=== PATIENT | male | born 1990 | race Two or more races ===

== ENCOUNTER 2018-07-09 15:23 | Emergency (ER) | payer MEDICAID ==
[~2018-07-09] VITALS: Ht 160 cm; Wt 54.0 kg
[2018-07-09 15:27] VITALS: BP 143/88; PULSE 90; RESP 18; Ht 160 cm; Wt 54.0 kg
[2018-07-09] MEDS ORDERED: CETI10CA PO (16:42)
[2018-07-09] MEDS ORDERED: ALBU18HF INHALATION (16:42)
[2018-07-09] MEDS ORDERED: AZIT250T PO (16:42)
[2018-07-09] MEDS ORDERED: BEN25 PO (16:44)
--- NOTE | 2018-07-19 13:17 | ERD ---
ER Documentation Chief Complaint Chief Complaint cough x 3 months , fever x 2 days HPI 27-year-old male presents with intermittent cough for last 3 months. He has no chest pain, hemoptysis, vomiting, abdominal pain, diarrhea. ROS All systems reviewed and are negative except as per history of present illness. Medications Home Meds Active Scripts Diphenhydramine Hcl* (Benadryl*) 25 Mg Cap, 25 MG PO Q6, #30 CAP Prov:LAURO ADAMS MD 07/09/18 Azithromycin* (Zithromax*) 250 Mg Tablet, 250 MG PO .ZPACK DIRECTED, #6 TAB TAKE 500 MG (2 TABS) THE FIRST DAY THEN 250 MG (1 TAB) DAYS 2-5 Prov:LAURO ADAMS MD 07/09/18 Albuterol Sulfate* (Ventolin HFA*) 18 Gm Hfa.aer.ad, 2 PUFF INHALATION Q4H, #1 INHALER Prov:LAURO ADAMS MD 07/09/18 Cetirizine Hcl* (Zyrtec*) 10 Mg Capsule, 10 MG PO DAILY, #30 TAB.CHEW Prov:LAURO ADAMS MD 07/09/18 FmHx Family History: No diabetes, No coronary disease, No other Physical Exam Physical Exam Const: No acute distress Head: Atraumatic Eyes: Normal Conjunctiva ENT: Normal External Ears, Nose and Mouth. TMs and oropharynx normal. Neck: Full range of motion. No meningismus. Resp: Clear to auscultation bilaterally Cardio: Regular rate and rhythm, no murmurs Abd: Soft, non tender, non distended. Normal bowel sounds Skin: No petechiae or rashes Back: No midline or flank tenderness Ext: No cyanosis, or edema Neur: Awake and alert Psych: Normal Mood and Affect Procedures/MDM Chest X-ray 1V Interpreted by me: Soft Tissue: No acute abnormalities Bones: No acute abnormalities Mediastinum/Cardiac Silhouette/Lungs: No acute abnormalities. Impression-no rmal 1 view chest x-ray Patient presents with cough for the last 3 months. He has no signs of hypoxemia, respiratory stress, pneumonia, symptoms or signs to suggest TB, or other emergent cause of presenting complaints. We will treat empirically with Ventolin, Zithromax, Zyrtec, primary care follow-up and return precautions. The patient was stable with no new complaints during the ER course. Clinically, there is no current evidence to suggest meningitis, sepsis, acute abdomen, pneumonia, stroke, acute coronary syndrome, pulmonary embolism, aortic dissection or any other emergent condition appearing to require further evaluation or hospitalization. Patient counseled regarding my diagnostic impression and care plan. Prior to discharge all questions answered. Pt agrees with treatment plan and understands strict return precautions. Pt is instructed to follow up with primary care provider within 24-48 hours. Precautionary instructions provided including instructions to return to the ER if not improving or for any worsening or changing symptoms or concerns. Disclaimer: Inadvertent spelling and grammatical errors are likely due to EHR/ dictation software use and do not reflect on the overall quality of patient care. Also, please note that the electronic time recorded on this note does not necessarily reflect the actual time of the patient encounter. Departure Diagnosis: Primary Impression: Upper respiratory infection URI type: unspecified URI Qualified Codes: J06.9 - Acute upper respiratory infection, unspecified Condition: Stable Patient Instructions: Cough, Chronic, Uncertain Cause, (Adult) Referrals: NO PRIMARY,CARE PHYSICIAN (PCP) Additional Instructions: X-ray normal. Will treat for infection as well as allergy. Recheck for new worsening symptoms with primary care doctor. LAURO ADAMS MD July 19, 2018 13:17
== END 2018-07-10 13:14 | disposition home or self-care (01) ==
LOC: E/R 15:23
DX: J06.9 Acute upper respiratory infection, unspecified (principal)
CPT/HCPCS: 71045

== ENCOUNTER 2018-08-24 21:09 | Emergency (ER) | payer MEDICAID ==
[~2018-08-24] VITALS: Ht 160 cm; Wt 54.1 kg
[~2018-08-24 21:09] MED LIST: ALBU18HF INHALATION; AZIT250T PO; BEN25 PO; BENZ-6 PO; CETI10CA PO; D-ME473S2 PO; DIPH25CA6 PO
[2018-08-24 21:12] VITALS: Ht 160 cm; Wt 54.1 kg
[2018-08-25] MEDS ORDERED: ALBUTEROL 0.083% (NEB) 2.5 MG/3 ML AMP NEB STA (00:28)
[2018-08-25] MEDS ORDERED: IPRATROPIUM (NEB) 0.5 MG/2.5 ML AMP HHN ONE (00:30)
[2018-08-25] MEDS ORDERED: PROMETHAZINE/DM (CUP) PO ONE (00:30)
[2018-08-25] MEDS ORDERED: BENZONATATE 100 MG CAP PO ONE (00:30)
[2018-08-25] MEDS ORDERED: KETOROLAC 60 MG INJ IM STA (00:48)
[2018-08-25] MEDS ORDERED: DEXAMETHASONE 10 MG/ML 1 ML INJ IM ONE (01:00)
[2018-08-25 02:11] VITALS: BP 132/80; PULSE 77; RESP 19
--- NOTE | 2018-09-08 04:51 | ERD ---
ER Documentation Chief Complaint Chief Complaint COUGH X 2 MONTHS. HPI History of Present Illness: 28-year-old male who denies a past medical history coming in today due to complaint of cough is been present for 2 months, nonprogressive. Patient recently moved in the [place] 4 months ago and was seen 1 month ago and was given a Z-Harinder in medications for allergies. Patient believes he has a more serious infection that requires additional antibiotics. States symptoms includes rhinorrhea, itchy nose, throat discomfort. At home pharmacological/nonpharmacological treatment for symptoms: Negative Denies social concerns; Denies recent foreign travel ROS All systems reviewed and are negative except as per history of present illness. Medications Home Meds Active Scripts Benzonatate* (Tessalon Perle*) 100 Mg Capsule, 200 MG PO TID PRN for COUGH, #30 CAP Prov:LYNDSAY EDEN NP 08/25/18 Dextromethorphan Hb-Promethazine Hcl* (Promethazine DM* Syrup) 473 Ml Syrup, 5 ML PO Q6 PRN for COUGH, #120 ML Prov:LYNDSAY EDEN NP 08/25/18 Albuterol Sulfate* (Ventolin HFA*) 18 Gm Hfa.aer.ad, 2 PUFF INHALATION Q6H for COUGH/SOB, #1 INHALER Prov:LYNDSAY EDEN NP 08/25/18 Cetirizine Hcl* (Zyrtec*) 10 Mg Capsule, 10 MG PO DAILY for ALLERGIES/COUGH/ITCH, #10 TAB.CHEW Prov:LYNDSAY EEDN NP 08/25/18 Diphenhydramine Hcl* (Benadryl*) 25 Mg Cap, 25 MG PO Q6, #30 CAP Prov:LAURO ADAMS MD 07/09/18 Azithromycin* (Zithromax*) 250 Mg Tablet, 250 MG PO .MatheusPACK DIRECTED, #6 TAB TAKE 500 MG (2 TABS) THE FIRST DAY THEN 250 MG (1 TAB) DAYS 2-5 Prov:LAURO ADAMS MD 07/09/18 Albuterol Sulfate* (Ventolin HFA*) 18 Gm Hfa.aer.ad, 2 PUFF INHALATION Q4H, #1 INHALER Prov:LAURO ADAMS MD 07/09/18 Cetirizine Hcl* (Zyrtec*) 10 Mg Capsule, 10 MG PO DAILY, #30 TAB.CHEW Prov:LAURO ADAMS MD 07/09/18 Allergies Allergies: Coded Allergies: Unknown: Unable to obtain (Unverified , 08/25/18) PMhx/Soc Medical and Surgical Hx: pt denies Medical Hx, pt denies Surgical Hx Hx Alcohol Use: No Hx Substance Use: No Hx Tobacco Use: No Smoking Status: Never smoker FmHx Family History: No diabetes Physical Exam Physical Exam Const: No acute distress, afebrile, coughing during exam Head: Atraumatic Eyes: Normal Conjunctiva ENT: Normal External Ears, Nose and Mouth. Oropharynx clear. No erythema, bulging, perforation to bilateral tympanic membranes. Neck: Full range of motion. No meningismus. Resp: Clear to auscultation bilaterally Cardio: Regular rate and rhythm, no murmurs Abd: Soft, non tender, non distended. No guarding, no masses, no rigidity Skin: No petechiae or rashes Back: No midline or flank tenderness Ext: No cyanosis, or edema Neur: Awake and alert x3, speaking in clear sentences, no focal deficits or facial asymmetry Psych: Normal Mood and Affect Results 24 hrs Current Medications Medications Dose Sig/Gage Start Time Status Last (Trade) Ordered Route PRN Stop Time Admin Dose Reason Admin Albuterol 5 mg ONCE STAT 08/25/18 DC 08/25/18 (Proventil NEB 00:28 08/25/18 00:59 0.083% (Neb)) 00:30 Ipratropium 0.5 mg ONCE ONCE 08/25/18 DC 08/25/18 [place] [facility] 00:30 08/25/18 00:59 (Atrovent 00:31 0.02% (Neb)) Benzonatate 200 mg ONCE ONCE 08/25/18 DC 08/25/18 (Tessalon) PO 00:30 08/25/18 01:04 00:31 Promethazine 10 ml ONCE ONCE 08/25/18 DC 08/25/18 HCl/ PO 00:30 08/25/18 01:04 Dextromethorp 00:31 dawkins (Phenergan-Dm ) Ketorolac 60 mg ONCE STAT 08/25/18 DC 08/25/18 Tromethamine IM 00:48 08/25/18 01:01 (Toradol) 00:52 8 mg ONCE ONCE 08/25/18 DC 08/25/18 Dexamethasone IM 01:00 08/25/18 01:01 (Decadron) 01:01 Procedures/MDM ED COURSE: ED course includes a thorough examination and history. The patient was stable throughout ED course. I kept the patient and/or family informed of laboratory and diagnostic imaging results throughout the ED course. LABS: None MEDICATIONS GIVEN IN ER: Ketorolac, dexamethasone, nebulizer treatments including albuterol and Atrovent, Tessalon Perles, promethazine/DM Patient tolerated medication well with no adverse reactions. Patient reported improvement in pain. DIAGNOSTIC IMAGING: I did not feel imaging was warranted PROCEDURES: None. MEDICAL DECISION MAKING: Low suspicion for life-threatening medical emergency. Low suspicion for infec tious process. Low suspicion for cardiopulmonary emergency. Otherwise healthy patient presenting with constellation of symptoms likely representing uncomplicated allergic rhinitis and chronic cough as characterized by history, physical exam findings. Patient reassessment @ 0203: Nebulizer treatments completed. Patient with no coughing. Patient without any allergy-like symptoms at this time. Patient responded to ED medication treatments. Strict encouragement to follow-up and establish care with a primary care doctor and also has a referral to an skilled nursing professional to get tested. Patient hemodynamically stable. No respiratory distre ss, otherwise relatively well appearing and nontoxic. Disposition given. Patient educated on diagnoses, prescriptions, follow-up care, return precautions. Strict return precautions given for worsening condition; questions answered discharge. Patient verbalizes understanding of discharge instructions. PRESCRIPTIONS FOR HOME: Tessalon, cetirizine, promethazine/DM, Ventolin inhaler DISPOSITION: DISCHARGE At this time, patient is stable for discharge and outpatient management. I have instructed the patient to follow-up with his/her primary care physician in 1-2 days. I have discussed with the patient the possibility of needing to see a specialist for further workup and imaging studies if symptoms persist. I have instructed the patient to promptly return to the ER for any new or worsening symptoms including increased pain, fever, nausea, vomiting, weakness or LOC. The patient and/or family expressed understanding of and agreement with this plan. All questions were answered. Home care instructions were provided. DISCLAIMER: Inadvertent spelling and grammatical errors are likely due to EHR/dictation software use and do not reflect on the overall quality of patient care. Also, please note that the electronic time recorded on this note does not necessarily reflect the actual time of the patient encounter. Departure Diagnosis: Primary Impression: Allergic rhinitis Additional Impression: Chronic cough Condition: Stable Patient Instructions: Cough, Chronic, Uncertain Cause, (Adult), Allergic Rhinitis Referrals: [facility] YOU HAVE RECEIVED A MEDICAL SCREENING EXAM AND THE RESULTS INDICATE THAT YOU DO NOT HAVE A CONDITION THAT REQUIRES URGENT TREATMENT IN THE EMERGENCY DEPARTMENT. FURTHER EVALUATION AND TREATMENT OF YOUR CONDITION CAN WAIT UNTIL YOU ARE SEEN IN YOUR DOCTORS OFFICE WITHIN THE NEXT 1-2 DAYS. IT IS YOUR RESPONSIBILITY TO MAKE AN APPOINTMENT FOR FOLOW-UP CARE. IF YOU HAVE A PRIMARY DOCTOR --you should call your primary doctor and schedule an appointment IF YOU DO NOT HAVE A PRIMARY DOCTOR YOU CAN CALL OUR PHYSICIAN REFERRAL HOTLINE AT IF YOU CAN NOT AFFORD TO SEE A PHYSICIAN YOU CAN CHOSE FROM THE FOLLOWING [facility] [address] [facility] [address] [facility] [facility] [address] [facility] [address] [facility] [address] [facility]. [facility]. [address] [facility]. [facility] YOU HAVE RECEIVED A MEDICAL SCREENING EXAM AND THE RESULTS INDICATE THAT YOU DO NOT HAVE A CONDITION THAT REQUIRES URGENT TREATMENT IN THE EMERGENCY DEPARTMENT. FURTHER EVALUATION AND TREATMENT OF YOUR CONDITION CAN WAIT UNTIL YOU ARE SEEN IN YOUR DOCTORS OFFICE WITHIN THE NEXT 1-2 DAYS. IT IS YOUR RESPONSIBILITY TO MAKE AN APPOINTMENT FOR FOLOW-UP CARE. IF YOU HAVE A PRIMARY DOCTOR --you should call your primary doctor and schedule and appointment IF YOU DO NOT HAVE A PRIMARY DOCTOR YOU CAN CALL OUR PHYSICIAN REFERRAL HOTLINE AT . IF YOU CAN NOT AFFORD TO SEE A PHYSICIAN YOU CAN CHOSE FROM THE FOLLOWING [facility]: [facility] [address] [place] [address] [facility] [address] [place] [address] [facility] [address] [place] [address] Additional Instructions: Thank you very much for allowing us to participate in your care. Your health and safety is our top priority at [facility]. It is important to read all discharge instructions and education provided in your discharge packet. Call your primary care doctor TOMORROW for an appointment during the next 2-4 days and bring all the information and medications prescribed. Have prescriptions filled and follow precisely the directions on the label. --Benzonatate is a medication that will help with cough suppression. This medication will not make you drowsy. -Ventolin is an inhaler. This medication is used to treat or prevent bronchospasm. This can be used to treat wheezing, shortness of breath, cough. -Cetirizine as an antihistamine that should not cause drowsiness; take this medication every day for allergy-like symptoms/cough/runny nose. --Promethazine DM is a cough syrup but also contains an antihistamine. This medication may cause drowsiness. Take this medication as needed for cough and symptoms. If the symptoms get worse and your provider is unavailable, return to the Emergency Department immediately. LYNDSAY EDEN NP Sep 08, 2018 04:51
== END 2018-08-25 02:12 | disposition home or self-care (01) ==
LOC: FTE 21:09
DX: J30.9 Allergic rhinitis, unspecified (principal)
CPT/HCPCS: 94664; 96372; J1100; J1885; Z7502; Z7610